=== PATIENT | male | born 1945 | race Caucasian/White ===

== ENCOUNTER 2021-11-02 10:28 | Outpatient (CLI) | payer MEDICARE | END 2021-11-02 10:29 | disposition home or self-care (01) | LOC: CSHMRI 10:28 | PROVIDERS: ATTEND Physician Assistant Medical | DX: K83.8 Other specified diseases of biliary tract (principal); K80.70 Calculus of gallbladder and bile duct without cholecystitis without obstruction; N28.89 Other specified disorders of kidney and ureter | CPT/HCPCS: 74183 ==

== ENCOUNTER 2022-10-31 09:17 | Outpatient (CLI) | payer MEDICARE | END 2022-10-31 09:18 | disposition home or self-care (01) | LOC: CSHWCC 09:17 | PROVIDERS: ATTEND Nurse Practitioner Family | DX: L89.312 Pressure ulcer of right buttock, stage 2 (principal); L89.321 Pressure ulcer of left buttock, stage 1 | CPT/HCPCS: 97139; G0463; 99203 ==

== ENCOUNTER 2022-11-21 08:49 | Outpatient (CLI) | payer MEDICARE | END 2022-11-21 08:50 | disposition home or self-care (01) | LOC: CSHWCC 08:49 | PROVIDERS: ATTEND Nurse Practitioner Family | DX: L89.312 Pressure ulcer of right buttock, stage 2 (principal); L89.321 Pressure ulcer of left buttock, stage 1 | CPT/HCPCS: 99213; G0463 ==